=== PATIENT | male | born 1970 | race Caucasian/White ===

== ENCOUNTER 2023-02-05 07:38 | Emergency (ER) | payer BC, SELFPAY ==
[2023-02-05 07:43] VITALS: BP 130/86; PULSE 83; RESP 16; TEMP 35.9; O2SAT 97; BMI 33.9
--- NOTE | 2023-02-05 08:00 | ED_ITS ---
HPI - Extremity Injury (Lower) General Time Seen by Provider: 08:00 Date Seen: 02/05/23 Chief Complaint: Extremity Pain/Injury, Lower Stated Complaint: R foot injury Time Seen by Provider: 02/05/23 08:00 Source: patient, RN notes reviewed and old records reviewed Mode of arrival: ambulatory Limitations: no limitations History of Present Illness HPI Narrative: Patient is a very pleasant 52-year-old male with history of diabetes, hyperlipidemia who comes to the emergency room with right foot pain. Frankie noted that he has been dealing with plantar fasciitis recently. He had worn a splint in bed at night for 2 days and had resolution of that discomfort but had increasing pain over the area of his lateral foot. He notes that yesterday he was stepping onto a ladder and felt a crack or 2 in his right foot. Since that time and has been hard to bear weight any has pain in the area of the lateral and base of the 5th metatarsal. He has no numbness or tingling. He has not injured his foot in the past. He has not taken anything for pain at this point. Bearing weight and movement definitely increases his discomfort and rest seems to help. Related Data Home Medications Medication Instructions Recorded Confirmed atorvastatin 40 mg tablet 40 mg PO DAILY 02/05/23 02/05/23 insulin lispro 100 unit/mL 0 - 120 unit subcut DAILY 02/05/23 02/05/23 subcutaneous solution lisinopril 10 mg tablet 10 mg PO DAILY 02/05/23 02/05/23 meloxicam 15 mg tablet 15 mg PO DAILY 02/05/23 02/05/23 pantoprazole 20 mg tablet,delayed 20 mg PO DAILY 02/05/23 02/05/23 release Allergies Allergy/AdvReac Type Severity Reaction Status Date / Time No Known Drug Allergies Allergy Verified 02/05/23 07:49 [facility] Medical History Hypercholesterolemia ?E78.00 - Pure hypercholesterolemia, unspecified (ICD-10) Diabetes ?E11.9 - Type 2 diabetes mellitus without complications (ICD-10) Foot fracture ?S92.909A - Unspecified fracture of unspecified foot, initial encounter for closed fracture (ICD-10) Social History Smoking Status: Former smoker Do you use any of these nicotine containing products: None How often do you have a drink containing alcohol: never AUDIT-C Alcohol total score: 0 Non-prescribed substance use: marijuana (any form) Exam Narrative: Exam Narrative: Alert and oriented. Very pleasant gentleman. No respiratory distress. Examination of the foot shows mild erythema and some mild edema on the dorsum and lateral aspect of the foot. He has tenderness noted over the base of the 5th metatarsal. No pain over the navicular or malleoli bilaterally. Distally sensation is intact. Const: Vital Signs, click to edit/add: Vital Signs - 24 hr 02/05/23 07:43 Temperature 96.7 F L Pulse Rate [Pulse Oximeter] 83 Respiratory Rate 16 Blood Pressure [Ri ght Upper Arm] 130/86 Pulse Oximetry 97 Oxygen Delivery Me thod Room Air Documenting provider has reviewed patient's vital signs: yes Course Course Hospital Course: At this time I am strongly suspicious of injury of the base of the 5th metatarsal. Will obtain x-ray of the foot. Vital Signs Vital signs: Initial Vital Signs Temperature 96.7 F L 02/05/23 07:43 Temperature Source Temporal Artery Scan 02/05/23 07:43 Pulse Rate 83 02/05/23 07:43 Respiratory Rate 16 02/05/23 07:43 Blood Pressure 130/86 02/05/23 07:43 Blood Pressure Mean 100 02/05/23 07:43 Blood Pressure Position Sitting 02/05/23 07:43 Pulse Oximetry 97 02/05/23 07:43 Oxygen Delivery Method Room Air 02/05/23 07:43 Vital Signs Temperature 96.7 F L 02/05/23 07:43 Pulse Rate 83 02/05/23 07:43 Respiratory Rate 16 02/05/23 07:43 Blood Pressure 130/86 02/05/23 07:43 Pulse Oximetry 97 02/05/23 07:43 Oxygen Delivery Method Room Air 02/05/23 07:43 Temperature 96.7 F L 02/05/23 07:43 Pulse Rate 83 02/05/23 07:43 Respiratory Rate 16 02/05/23 07:43 Blood Pressure 130/86 02/05/23 07:43 Pulse Oximetry 97 02/05/23 07:43 Oxygen Delivery Method Room Air 02/05/23 07:43 MDM - Extremity Injury (Lower) MDM Narrative Medical decision making narrative: 1. Right 5th metatarsal fracture-this appears to be at the base. Patient has a boot and crutches at home which I would like him to utilize. Requests that he use the boot and he is able to bear weight but not full weight. Would request that he use his crutches for balance. He may elevate his foot ice as needed. It is imperative that he follow up with Orthopedics to be followed to ensure that this does heel as this particular type of fracture has a tendency for malunion or nonunion. He may use his meloxicam or Tylenol as needed for discomfort. 2. Disposition -home at this time. Return for worsening symptoms. Given his recent plantar fasciitis would recommend that while he is resting have additional support under his med at tarsal heads and toes for some mild dorsiflexion. Medical Records Attestation: I reviewed the patient's medical records. Imaging Data Right foot x-ray: Attestation: I have reviewed the pertinent imaging results. My impression: By my read patient has a minimally displaced fracture of the 5th metatarsal base. Radiologist's impression: There is an acute nondisplaced fracture of the 5th metatarsal base extending to the proximal articular surface. Os peroneum. Spurring of the plantar and posterior aspects of the calcaneus. No significant joint space narrowing. No radiopaque foreign body or soft tissue gas. IMPRESSION: Acute nondisplaced fracture of the right 5th metatarsal base. Discharge Plan Discharge Clinical Impression: Closed fracture of fifth metatarsal bone Qualifiers: Encounter type: initial encounter Fracture alignment: nondisplaced Laterality: right Qualified Code(s): S92.354A - Nondisplaced fracture of fifth metatarsal bone, right foot, initial encounter for closed fracture Patient Disposition: Home, Self-Care Condition: Unchanged Instructions: Foot Fracture in Adults (ED) Additional Instructions: 1. Wear your boot that you have at home when walking. I would like you to use the crutches for balance support. You may bear weight on your foot but not all of your weight. 2. Ibuprofen (or meloxicam) or Tylenol as needed for discomfort. Recommend tr john paul to keep your foot elevated. Ice as needed. 3. Follow-up with the orthopedic and fracture clinic for recheck and evaluation. Phone number, This particular fracture does have a tendency to not heal and thus I must recommend follow-up even if you are feeling better. 4. Return to the emergency room as needed. Note for work included. Prescriptions: No Action atorvastatin 40 mg tablet 40 mg PO DAILY meloxicam 15 mg tablet 15 mg PO DAILY pantoprazole 20 mg tablet,delayed release (DR/EC) 20 mg PO DAILY lisinopril 10 mg tablet 10 mg PO DAILY insulin lispro 100 unit/mL solution 0 - 120 unit subcut DAILY Follow Up/Referrals: Ayaz Haro MD [Primary Care Provider] - Stand Alone Forms: [employer] Info Instructions
--- NOTE | 2023-02-05 08:07 | CRLHL7_ITS ---
For Patients: As a result of the Century Cures Act, medical imaging exams and procedure reports are released immediately into your electronic medical record. You may view this report before your referring provider. If you have questions, please contact your health care provider. HISTORY: Right foot pain associated with the 5th metatarsal bone. TECHNIQUE: Three views of the right foot. COMPARISON: No prior. FINDINGS: There is an acute nondisplaced fracture of the 5th metatarsal base extending to the proximal articular surface. Os peroneum. Spurring of the plantar and posterior aspects of the calcaneus. No significant joint space narrowing. No radiopaque foreign body or soft tissue gas. IMPRESSION: Acute nondisplaced fracture of the right 5th metatarsal base. Dictated by Duke Da Silva MD @ 02/05/2023 9:05:48 AM Dictated by: Duke Da Silva MD @ 02/05/2023 09:05:54 (Electronically Signed)
== END 2023-02-05 09:03 | disposition home or self-care (01) ==
PROVIDERS: Emergency Provider Family Medicine; PCP Family Medicine
DX: S92.504A Nondisplaced unspecified fracture of right lesser toe(s), initial encounter for closed fracture (principal)
CPT/HCPCS: 73630; 99283; 99284

== ENCOUNTER 2023-04-21 07:51 | Day surgery (SDC) | payer BC, SELFPAY ==
[2023-04-21] MEDS: LACTATED RINGERS 1000 ML 1,000 ML 100 ML IV (08:10)
[2023-04-21] MEDS: SODIUM CHLORIDE 0.9 % (FLUSH) 10 ML SYRINGE IVF (08:10)
[2023-04-21 08:13] VITALS: BP 158/91; PULSE 85; RESP 16; TEMP 36.7; O2SAT 98; BMI 35.8
--- NOTE | 2023-04-21 09:00 | CRLHL7_ITS ---
For Patients: As a result of the Cures Act, medical imaging exams and procedure reports are released immediately into your electronic medical record. You may view this report before your referring provider. If you have questions, please contact your health care provider. Indication: ORIF 5TH Metatarsal Technique: Four fluoroscopic images of the right foot. Fluoroscopic time 26.0 seconds. IMPRESSION: Fluoroscopic guidance for open reduction internal fixation proximal 5th metatarsal fracture. Dictated by Brian Hong MD @ 04/21/2023 10:39:10 AM (Electronically Signed)
[2023-04-21] MEDS: CEFAZOLIN 2 GM INJ IVP (09:11)
[2023-04-21] MEDS: BUPIVACAINE 0.5% 30 ML INJECTION (09:20)
[2023-04-21 10:50] VITALS: BP 117/78; PULSE 76; RESP 16; TEMP 36.4; O2SAT 97
--- NOTE | 2023-04-21 10:53 | W.ANESCHARGE ---
Anesthesia Charges Start Date/Time Anesthesia Start Date: 04/21/23 Anesthesia Start Time: 09:06 Stop Date/Time Anesthesia Stop Date: 04/21/23 Anesthesia Stop Time: 10:51
--- NOTE | 2023-04-21 10:57 | PM.PROC ---
Procedure Note Date Seen: 04/21/23 Date of procedure: 04/21/23 Will [facility] bill your pro fee for this procedure?: No Pre-op diagnosis: 1. 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 ORIF 5th metatarsal base fracture right Procedure Description: Hemostasis: Ankle tourniquet 250 mm Hg Materials: Arthrex hook plate x1, 2.5 mm locking screw x3, 2.5 mm nonlocking screw x1, Asha augment bone graft with allogenic croutons Complications: None apparent Indications surgery: Patient has a nonhealing 5th metatarsal base fracture with significant diastasis. He has elected for surgical intervention. I reviewed the procedure, recovery, expectations and potential complications. These include but not limited to: Poor wound healing, infection, continued delayed union or nonunion, hardware irritation or failure, nerve injury, continued pain, deep venous thrombosis, pulmonary embolism and possible . He understands risks and written consent was obtained. Site was marked. Procedure in detail: Was brought in the operating room placed supine position on operating table. IV sedation was initiated local anesthetic injected into the right foot. Patient was prepped and draped in sterile fashion. Standard time-out protocol followed. Right foot was exsanguinated the tourniquet inflated. Linear incision was made over the dorsal lateral aspect of the 5th metatarsal base. Incision was carried down through skin subcutaneous tissues. Significant thickened periosteum was encountered and excised. Nonunion site was identified and debrided with a rongeur and curette until healthy bleeding bone margins obtained. Area was irrigated with normal sterile saline. Augment bone graft was mixed with crushed cancellous screw times and packed into the void. the fracture fragment was then reduced into anatomic alignment and temporary fixated with a 0.054 smooth K-wire. An Arthrex hook plate was then placed and the hooks tamped into the proximal fragment. plate was then advanced down to bone distally in a BB tack placed. Fracture site was well compressed and in anatomic position. 2.5 mm cortical locking screw was placed in the proximal fragment. 2.5 mm nonlocking cortical screw was placed in the compression slot distally which created additional compression at fracture nonunion site. Two additional 2.5 mm cortical locking screws were placed distal. Unfortunately was unable to place a 2nd locking screw proximal as the screw to be in within the fracture site. Rigid fixation was obtained With 1 screw and the imbedded hooks. C-arm images confirmed anatomic alignment of the fracture site and the 5th metatarsal cuboid joint. Deep fascia and periosteum were closed with 3-0 Vicryl. Subcutaneous tissues closed with 4-0 Monocryl and skin closed with 4-0 Prolene. Sterile dressing was applied. Tourniquet was released and normal capillary fill time returned all digits. He has placed a well-padded cam boot. He was transferred from OR to PACU with vital signs stable and vascular status intact. He was discharged per Anesthesia per same-day protocol. oxycodone for pain. Written and verbal postop instructions given. Strict nonweightbearing. Follow up in clinic next week. Anesthesia: MAC and local Surgeon: Kamron Anguiano DPM Estimated blood loss (mL): 2 Condition: stable Disposition: same day
[2023-04-21 11:00] VITALS: BP 129/74; PULSE 67; RESP 16; O2SAT 97
[2023-04-21 11:15] VITALS: BP 161/101; PULSE 65; RESP 16; O2SAT 97
[2023-04-21 11:30] VITALS: BP 165/102; PULSE 67; RESP 16; O2SAT 98
--- NOTE | 2023-04-21 11:35 | W.ANESCHARGE ---
Anesthesia Charges Start Date/Time Anesthesia Start Date: 04/21/23 Anesthesia Start Time: 09:06 Stop Date/Time Anesthesia Stop Date: 04/21/23 Anesthesia Stop Time: 10:51
== END 2023-04-21 11:50 | disposition home or self-care (01) ==
LOC: OR 07:55
PROVIDERS: PCP Family Medicine; Visit Provider Podiatrist
PROC: (CPT 28485; principal; 2023-04-21 09:00)
DX: S92.351A Displaced fracture of fifth metatarsal bone, right foot, initial encounter for closed fracture (principal)
CPT/HCPCS: 28485; 01480; 73620; 76000; 82962; C1713; J0665; J0690; J2250; J2405; J2704; J3010; J7120

== ENCOUNTER 2023-11-01 08:37 | Emergency (ER) | payer BC, SELFPAY ==
[2023-11-01 08:42] VITALS: BP 165/81; PULSE 83; RESP 18; TEMP 36.7; O2SAT 98; BMI 33.9
--- NOTE | 2023-11-01 08:54 | ED.GENADULT ---
HPI - General Adult General Time Seen by Provider: 08:54 Date Seen: 11/01/23 Chief complaint: Extremity Pain/Injury, Lower Stated complaint: foot injury/pain Time Seen by Provider: 11/01/23 08:47 Source: patient and RN notes reviewed Mode of arrival: ambulatory Limitations: no limitations History of Present Illness HPI narrative: This 53-year-old male is coming in with right foot pain. He had a fracture in his foot that was surgically repaired by sub acute care nurse Dr. Anguiano in April 2023. He notes since that time he always had a little swelling on the dorsal surface around the base of the 2nd and 3rd toes. Yesterday he mode, went to work afterwards and started to notice shooting pain that was sharp in the foot and increased pain within the center of the foot. He was having difficulty walking as this increases his pain. The pain was waking him through the night. He notes no fevers or chills. He points to his mid foot where he notes some of the sharp pain is. The whole foot feels achy. It is not necessarily along the surgical site which is along his lateral foot. He does note that the whole foot seems to be a bit more swollen. The pain is not into the ankle. No numbness or tingling. He did call the clinic, they cannot get him back into Dr. Anguiano until December and told him to come to the ER. He has no history of gout. There is no new trauma. Patient is diabetic. Related Data Home Medications Medication Instructions Recorded Confirmed atorvastatin 40 mg tablet 40 mg PO DAILY 02/05/23 11/01/23 insulin lispro 100 unit/mL 0 - 120 unit subcut DAILY 02/05/23 11/01/23 subcutaneous solution lisinopril 10 mg tablet 10 mg PO DAILY 02/05/23 11/01/23 pantoprazole 20 mg tablet,delayed 20 mg PO DAILY 02/05/23 11/01/23 release Allergies Allergy/AdvReac Type Severity Reaction Status Date / Time No Known Drug Allergies Allergy Verified 04/21/23 08:13 Review of Systems Narrative: As per HPI. [facility] Medical History Hypercholesterolemia ?E78.00 - Pure hypercholesterolemia, unspecified (ICD-10) Diabetes ?E11.9 - Type 2 diabetes mellitus without complications (ICD-10) Foot fracture ?S92.909A - Unspecified fracture of unspecified foot, initial encounter for closed fracture (ICD-10) Social History Smoking Status: Former smoker Do you use any of these nicotine containing products: None How often do you have a drink containing alcohol: never AUDIT-C Alcohol total score: 0 Non-prescribed substance use: marijuana (any form) Caffeine: Yes Exam Const: Vital Signs, click to edit/add: Vital Signs - 24 hr 11/01/23 08:42 Temperature 98.1 F Pulse Rate [Right Pulse Oximeter] 83 Respiratory Rate 18 Blood Pressure [Ri ght Upper Arm] 165/81 H Pulse Oximetry 98 Oxygen Delivery Me thod Room Air Patient has a short cam walker boot that he comes in with. He is alert, interactive, no apparent distress. Breathing easily on room air, lungs clear. CV regular rate and rhythm no murmur. Inspection of his feet shows that there is indeed some very mild tissue swelling over the dorsum of his right foot. There is just very slight pinkish coloration to this but not erythema. The dorsum of the foot feels globally mildly warmer than the left foot. Neurovascular is intact. He has pain when I compress the metatarsal heads. He feels the pain more in the lateral foot when I do this. He has a surgical scar along the lateral foot overlying the 5th metatarsal, no pain there. He has no pain along his ankle mortise, no edema or swelling into the ankle, ankle joint without effusion. Pain seems to be coming from the midfoot where he is pointing to. Documenting provider has reviewed patient's vital signs: yes Course Course ED Course: We will start with plain x-rays of his foot, obtain basic labs. He is diabetic which does place him at potentially higher risk for infection. I think infection is lower on my differential list. Inflammatory conditions such as gout and pseudogout are possible. This could be structural with arthritis developing, neuropathic changes. Will see what the x-ray and labs show S. Reevaluation(s) Time of Reevaluation #1: 10:37 Reevaluation #1: Reviewed patient's x-ray report with him. Reviewed that his labs are normal and do not necessarily point to any etiology for his complaints. I do note that the dorsum of this foot seems to be a little bit more erythematous since his arrival. His foot has been up on the bed essentially elevating. Swelling is not worse but there is more erythema that is notable. Reviewed with patient that I am going to try to page Dr. Anguiano. Time of Reevaluation #2: 11:01 Reevaluation #2: Patient updated, does have crutches at home. Will await CT to be done. Time of Reevaluation #3: 11:52 Reevaluation #3: Reviewed CT with the 2nd metatarsal fracture. Plan will be to follow up with Podiatry, use his cam walker and crutches for immobilization and nonweightbearing. Will provide patient a note for work until he follows up with Podiatry. He states if he is not going to be weight-bearing that he does not think he will need anything for pain. Consultations Consultation #1: Have reviewed the case with Dr. Anguiano. He worries that this could be acute phase of Charcot foot. We will obtain a CT for baseline. Is going to have his office get the patient in sooner and will contact him. We will get the CT, make sure that he is aware to be nonweightbearing on this foot. Will have to see if he needs crutches. Time: 10:42 Vital Signs Vital signs: Initial Vital Signs Temperature 98.1 F 11/01/23 08:42 Temperature Source Temporal Artery Scan 11/01/23 08:42 Pulse Rate 83 11/01/23 08:42 Respiratory Rate 18 11/01/23 08:42 Blood Pressure 165/81 H 11/01/23 08:42 Blood Pressure Mean 109 H 11/01/23 08:42 Blood Pressure Position Sitting 11/01/23 08:42 Pulse Oximetry 98 11/01/23 08:42 Oxygen Delivery Method Room Air 11/01/23 08:42 Vital Signs Temperature 98.1 F 11/01/23 08:42 Pulse Rate 83 11/01/23 08:42 Respiratory Rate 18 11/01/23 08:42 Blood Pressure 165/81 H 11/01/23 08:42 Pulse Oximetry 98 11/01/23 08:42 Oxygen Delivery Method Room Air 11/01/23 08:42 Temperature 98.1 F 11/01/23 08:42 Pulse Rate 83 11/01/23 08:42 Respiratory Rate 18 11/01/23 08:42 Blood Pressure 165/81 H 11/01/23 08:42 Pulse Oximetry 98 11/01/23 08:42 Oxygen Delivery Method Room Air 11/01/23 08:42 Medical Decision Making Lab Data Lab results reviewed: Yes I reviewed the patient's lab results Labs: Lab Results 11/01/23 Range/Units 09:13 WBC 8.16 (4.50-11.00) K/uL RBC 4.73 (4.30-5.90) m/uL Hgb 13.9 (13.5-17.5) gm/dL Hct 42.1 (37.0-53.0) % MCV 89 (80-100) fL MCH 29 (26-34) pg MCHC 33 (32-36) gm/dL RDW Coeff of Serge 13.1 (11.5-15.5) % Plt Count 269 (140-440) K/uL Neut % (Auto) 63.1 (42.0-72.0) % Lymph % (Auto) 27.6 (20-44) % Granite % (Auto) 7.1 (0.0-11.0) % Eos % (Auto) 1.6 (0.0-7.0) % Baso % (Auto) 0.4 (0.0-3.0) % Neut # (Auto) 5.15 (1.7-7.0) K/uL Lymph # (Auto) 2.25 (0.90-2.90) K/uL Granite # (Auto) 0.60 (0.00-0.90) K/UL Eos # (Auto) 0.13 (0.00-0.50) K/uL Baso # (Auto) 0.03 (0.00-0.30) K/uL Abs Immat Gran (auto) 0.02 (0.00-0.30) K/uL Imm/Tot Granulo (auto) 0.2 % Sodium 138 (135-149) mmol/L Potassium 4.1 (3.6-5.1) mmol/L Chloride 102 (96-114) mmol/L Carbon Dioxide 29 (20-32) mmol/L Anion Gap 7 (7-15) mEq/L BUN 21 (7-30) mg/dL Creatinine 0.9 (0.5-1.5) mg/dL Estimated Creat Clear 102.99 Estimated GFR 101 ml/min Glucose 94 (60-115) mg/dL Uric Acid 6.9 (2.2-8.4) mg/dL Calcium 9.0 (8.4-10.6) mg/dL C-Reactive Protein < 0.5 L (0.5-1.0) mg/dL Procalcitonin 0.05 (<0.50) ng/mL Imaging Data XR right foot: Attestation: I have reviewed the pertinent imaging results. My impression: Visualize x-rays, hardware appears intact to me, I do not appreciate acute changes, wait radiology over-read. Radiologist's impression: Patient: STONEY BURNETT Facility:?[facility] Patient ID:?[id number] Site Patient ID:?[id number]. Site :?1970 Study:?XRay-Extremity Right Foot 3v-11/01/2023 9:36:46 AM Ordering Physician:?Meenu Flores Final Report: INDICATION: Pain on the top of the foot. Pain knot at the previous surgical site. COMPARISON: None. TECHNIQUE: Three views right foot FINDINGS: Healing fracture through the base of the right 5th metatarsal with lateral plate and screw fixation. No hardware loosening or failure. No other acute or healing fracture seen. There is mild flattening of the 2nd metatarsal head. Normal alignment. 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 No focal bone lesions. Normal bone mineralization. Soft tissue swelling over the top of the foot. Heavy atherosclerotic vascular calcifications. No foreign body. IMPRESSION: Soft tissue swelling over the top of the right foot. No acute fracture seen. Dictated by Paige Oneal MD @ 11/01/2023 9:41:37 AM (Electronic Signature) CT- Other: Attestation: I have reviewed the pertinent imaging results. Radiologist's impression: Patient: STONEY BURNETT Facility:?[facility] Patient ID:?[id number] Site Patient ID:?[id number]. Site :?1970 Study:?CT-Extremity Right foot w/o-11/01/2023 11:32:13 AM Ordering Physician:Valentin Flores Final Report: INDICATION: Midfoot pain. TECHNIQUE: Noncontrast CT of the right foot. COMPARISON: Radiographs from 11/01/2023. FINDINGS: There is a subtle nondisplaced incomplete fracture involving the plantar cortex of the 2nd metatarsal bone at the junction of the metaphysis and shaft. This is noted on coronal image number 34 of series 5. There is some periosteal reaction involving the 2nd metatarsal bone. Remote fracture of the neck of the 3rd metatarsal bone, healed with mild deformity. Prior plate and screw fixation of the proximal 5th metatarsal bone. That placed hardware appears intact and appropriately seated. The 5th metatarsal base fracture demonstrates partial healing. Cuneiform bones, navicular bone and cuboid bone are intact. TMT alignment maintained. An os peroneum is present. Chronic ossicle adjacent to the anterior process of the calcaneus. Chronic ossicle along the medial aspect of the sinus tarsi. Plantar calcaneal spur. Thickening of the proximal plantar fascia. Subcutaneous edema. Mild atrophy of interosseous foot musculature suggesting chronic denervation changes. IMPRESSION: 1. Subtle nondisplaced incomplete fracture involving the plantar cortex of the 2nd metatarsal bone proximally. Associated periosteal reaction involving the 2nd metatarsal shaft. 2. Remote fracture of the 3rd metatarsal bone, healed with mild deformity. 3. Prior plate and screw fixation of the 5th metatarsal bone. Hardware intact and appropriately seated. Fifth metatarsal base fracture demonstrates partial healing. 4. No TMT joint malalignment or significant arthrosis. 5. Mild atrophy of the interosseous foot musculature which may reflect chronic denervation changes. Dictated by Duke Da Silva MD @ 11/01/2023 11:45:27 AM Please note that all CT scans at this facility use dose modulation, iterative reconstruction, and/or weight-based dosing when appropriate to reduce radiation dose to as low as reasonably achievable. Dictated by: Duke Da Silva MD @ 11/01/2023 11:45:37 (Electronic Signature) Discharge Plan Discharge Clinical Impression: Closed fracture of second metatarsal bone Qualifiers: Encounter type: initial encounter Fracture alignment: nondisplaced Laterality: right Qualified Code(s): S92.324A - Nondisplaced fracture of second metatarsal bone, right foot, initial encounter for closed fracture Patient Disposition: Home, Self-Care Condition: Stable Instructions: Foot Fracture in Adults (ED) Additional Instructions: Leave cam walker on for immobilization, use crutches for nonweightbearing. You will see Dr. Anguiano in clinic at 3:15 p.m. next Monday which will be November 06. Ice and elevate this foot as much as you can to help decrease swelling. Activity Level: No Weight Bearing Prescriptions: No Action atorvastatin 40 mg tablet 40 mg PO DAILY pantoprazole 20 mg tablet,delayed release (DR/EC) 20 mg PO DAILY lisinopril 10 mg tablet 10 mg PO DAILY insulin lispro 100 unit/mL solution 0 - 120 unit subcut DAILY Follow Up/Referrals: Ayaz Haro MD [Primary Care Provider] - Stand Alone Forms: [employer] Info Instructions
--- NOTE | 2023-11-01 09:04 | XR_ITS ---
Patient: STONEY BURNETT Facility:?[facility] Patient ID:?[id number] Site Patient ID:?[id number]. Site :?1970 Study:?XRay-Extremity Right Foot 3v-11/01/2023 9:36:46 AM Ordering Physician:?Meenu Flores Final Report: INDICATION: Pain on the top of the foot. Pain knot at the previous surgical site. COMPARISON: None. TECHNIQUE: Three views right foot FINDINGS: Healing fracture through the base of the right 5th metatarsal with lateral plate and screw fixation. No hardware loosening or failure. No other acute or healing fracture seen. There is mild flattening of the 2nd metatarsal head. Normal alignment. 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 No focal bone lesions. Normal bone mineralization. Soft tissue swelling over the top of the foot. Heavy atherosclerotic vascular calcifications. No foreign body. IMPRESSION: Soft tissue swelling over the top of the right foot. No acute fracture seen. Dictated by Paige Oneal MD @ 11/01/2023 9:41:37 AM Signed by:?Paige Oneal MD @11/01/2023 9:41:37 AM (Electronic Signature)
[2023-11-01 09:18] LABS: Basophils Absolute Auto 0.03 K/uL (0.00-0.30); Basophils Percent Auto 0.4 % (0.0-3.0); Eosinophils Absolute Auto 0.13 K/uL (0.00-0.50); Eosinophils Percent Auto 1.6 % (0.0-7.0); Hematocrit 42.1 % (37.0-53.0); Hemoglobin* 13.9 gm/dL (13.5-17.5); Immature Granulocytes Abs Auto 0.02 K/uL (0.00-0.30); Immature Granulocytes Pct Auto 0.2 %; Lymphocytes Absolute Auto 2.25 K/uL (0.90-2.90); Lymphocytes Percent Auto 27.6 % (20-44); Mean Corpuscular HGB Conc 33 gm/dL (32-36); Mean Corpuscular Hemoglobin 29 pg (26-34); Mean Corpuscular Volume 89 fL (80-100); Monocytes Percent Auto 7.1 % (0.0-11.0); Neutrophils Absolute Auto 5.15 K/uL (1.7-7.0); Neutrophils Percent Auto 63.1 % (42.0-72.0); Platelet Count* 269 K/uL (140-440); RDW Coefficient of Variation % 13.1 % (11.5-15.5); Red Blood Count 4.73 m/uL (4.30-5.90); White Blood Count* 8.16 K/uL (4.50-11.00)
[2023-11-01 09:23] LABS: Slide Review Reflex No
[2023-11-01 09:32] LABS: Chloride* 102 mmol/L (96-114); Potassium* 4.1 mmol/L (3.6-5.1); Sodium* 138 mmol/L (135-149)
[2023-11-01 09:35] LABS: Creatinine* 0.9 mg/dL (0.5-1.5); Est. Creatinine Clearance* 102.99; Estimated Glomerular Filt Rate 101 ml/min
[2023-11-01 09:36] LABS: Anion Gap 7 mEq/L (7-15); Blood Urea Nitrogen* 21 mg/dL (7-30); Carbon Dioxide* 29 mmol/L (20-32); Glucose* 94 mg/dL (60-115); Uric Acid* 6.9 mg/dL (2.2-8.4)
--- OUTSIDE RECORDS SUMMARY | 2023-11-01 09:38 | XMS_ITS | Referral Summary ---
Author Name Unknown Organization [place] Address [facility] [place] [address] Care Team Providers Care Skimmer Scoop Operator Name Role Phone Ayaz Haro Primary Care Provider [phone] Allergies No known active allergies Medications Medication Sig Dispensed Refills Start Date End Date Status Insulin Lispro, Human, (HUMALOG SC) Inject Subcutaneous. Active lisinopril (PRINIVIL,ZESTRIL) 2.5 MG tablet Take 2.5 mg by mouth daily. Active ORDER FOR DMEIndications:Toe injury R post op shoe. 1 Device 0 12/10/2010 Active order for DMEIndications:Sesam oiditis Equipment being ordered: post op shoe right 1 Device 0 12/26/2015 Active ATORVASTATIN CALCIUM PO Active naproxen (NAPROSYN) 500 MG tabletIndications:Ri ght foot pain Take 1 tablet (500 mg) by mouth 2 times daily (with meals) 60 tablet 0 12/30/2015 Active pantoprazole (PROTONIX) 20 MG EC tablet Take 40 mg by mouth daily Active Social History Tobacco Use Types Packs/Day Years Used Date Smoking Tobacco: Former Cigarettes Q uit: 2008 Smokeless Tobacco: Never Tobacco Cessation:Counseling Given: Not Answered Alcohol Use Standard Drinks/Week Comments Not Currently 0 (1 standard drink = 0.6 oz pur e alcohol) Adolescent Education Answer Date Record ed Getting School Help Needed Not on file 04/05 Sex and Gender Information Value Date Recorded Sex Assigned at Not on file Gender Identity Not on file Sexual Orientation Not on file Last Filed Vital Signs Vital Sign Reading Time Taken Comments Blood Pressure 105/68 08/26/2022 2:30 PM [facility] Pulse 64 08/26/2022 2:30 PM [facility] Temperature 37.1 ??C (98.8 ??F) 12/30/2015 5:29 PM CD T Respiratory Rate 10 08/26/2022 2:30 PM [facility] Oxygen Saturation 94% 08/26/2022 2:30 PM [facility] Inhaled Oxygen Concentration - - Weight 111.1 kg (245 lb) 08/26/2022 1:31 PM [facility] Height 182.9 cm (6') 08/26/2022 1:31 PM [facility] Body Mass Index 33.23 08/26/2022 1:31 PM [facility] Plan of Treatment Not on file Care Teams Skimmer Scoop Operator Relationship Specialty Start Date End Date Ayaz Haro [address] [place] [address] PCP - General Family Medicine 08/26/22
--- OUTSIDE RECORDS SUMMARY | 2023-11-01 09:38 | XMS_ITS | Clinical Summary ---
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) USE DIRECTED FOR PERSONAL USE IN CASE OF SEVERE HYPERGLYCEMIA 50 Each 7 Active blood sugar diagnostic (Blood Glucose Test) stripIndications :Type 1 diabetes mellitus with other neurologic complication (HC) Test blood sugar 3 times per day 100 Each 5 3 Active lancetsIndicatio ns:Type 1 diabetes mellitus with other neurologic complication (HC) Use to test blood sugars 3 times per day 100 Each 5 3 Active blood-glucose meterIndications :Type 1 diabetes mellitus with other neurologic complication (HC) Test blood sugar as directed 1 Each 3 Active durable medical equipment (DME)Indications :Plantar fasciitis Custom functional orthotics for plantar fasciitis 1 Each 3 Active durable medical equipment (DME)Indications :Closed fracture of base of fifth metatarsal bone of right foot, initial encounter Airselect, standard, large 01EF-left length of use 99 months 1 Each 3 Active glucagon (BAQSIMI) 3 mg/actuation nasal sprayIndications :patient with diabetes mellitus at risk of hypoglycemia Inhale 1 [place] into affected nostril(s) each time if needed for Severe Hypoglycemia. Roll on side and call 911 after administration. 2 Each 1 3 Active oxyCODONE (ROXICODONE) 5 mg immediate release tabletIndication s:Closed fracture of base of fifth metatarsal bone of right foot, initial encounter Take 1-2 Tablets (5-10 mg) by mouth every 4 hours if needed for Pain. 20 Tablet 3 Active CPAPIndications: ALEJANDRA (obstructive sleep apnea) CPAP machine for home use at pressure 9 cmw, starting pressure between 5-7 based on patient's comfort; full face mask x1/3month with full face mask cushion x1/mo 1 Each 11 4 Active atorvastatin (LIPITOR) 40 mg tabletIndication s:Dyslipidemia, goal LDL below 70 TAKE 1 TABLET(40 MG) BY MOUTH EVERY DAY 90 Tablet 2 4 Active pantoprazole (PROTONIX) 20 mg tabletIndication s:Upper GI bleed TAKE 1 TABLET(20 MG) BY MOUTH EVERY DAY 90 Tablet 2 4 Active lisinopriL (PRINIVIL; ZESTRIL) 20 mg tabletIndication s:Benign essential HTN Take 1 Tablet (20 mg) by mouth once daily. 90 Tablet 1 4 Active insulin lispro (HUMALOG; ADMELOG) 100 unit/mL injectionIndicat ions:Type 1 diabetes mellitus with other neurologic complication (HC) INJECT UP TO 120 UNITS PER DAY IN INSULIN PUMP 150 mL 3 4 Active lisinopriL (PRINIVIL; ZESTRIL) 20 mg tabletIndication s:Benign essential HTN Take 1 Tablet (20 mg) by mouth once daily. 90 Tablet 2 3 10/12/19 24 Discontinued insulin lispro (HUMALOG; ADMELOG) 100 unit/mL injectionIndicat ions:Type 1 diabetes mellitus with other neurologic complication (HC) INJECT UP TO 120 UNITS PER DAY IN INSULIN PUMP 150 mL 4 10/15/19 24 Discontinued lisinopriL (PRINIVIL; ZESTRIL) 20 mg tabletIndication s:Benign essential HTN TAKE 1 TABLET(20 MG) BY MOUTH EVERY DAY 90 Tablet 4 10/12/19 24 Discontinued(Re order (E-cancel not sent)) Active Problems Problem Noted Date Diagnosed Date ALEJANDRA 12/26/2022 AHI- 13, positional 01/23/2023 Colon polyp 05/28/2021 Overview: Colonoscopy 05/2021 TA, repeat in 7 years Benign essential HTN 10/17/2014 Obesity, unspecified 04/17/2012 Other and unspecified hyperlipidemia 03/09/2011 Sensorineural hearing loss, bilateral 02/17/2011 Retinopathy, other nondiabetic proliferative 06/2010 Neuropathy in diabetes 02/17/2011 Albuminuria 02/17/2011 Amputation of finger of left hand 02/17/[address] 12/15/2010 Type 1 diabetes mellitus with neurological compl ications 12/15/2010 Overview: diagnosis age 17 history of albuminuria history of mild lower extremity neuropathy HEALTH CARE AIDE eye exam 01/30 Resolved Problems Problem Noted Date Diagnosed Date Resolved Date Acute hyperkalemia 10/14/2014 Acute kidney injury (nontraumatic) 10/14/2014 04/02/2021 Shoulder pain, right 02/17/2011 022 Chest pain, unspecified 02/17/201103/19 Encounters Date Type Department Care Team Description 11/01/2023 Nurse Triage [facility] [address] [place] [address] Kamron Anguiano DPM Foot Pain/problem 10/14/2023 Refill [facility] [address] [place] [phone] Frankie Sotelo MD Refill Request (Insulin Lispro) 10/11/2023 Refill [facility] [address] [place] [address] Ayaz Haro MD Refill Request (Lisinopril) 08/13/2023 Refill [facility] [address] [facility] [address] Ayaz Haro MD Refill Request (Atorvastatin, Pantoprazole) 08/08/2023 1:00 PM HOLE FILLER Office Visit [facility] [address] [place] [address] Kamron Anguiano, DPM Follow Up (Right 3 month post op visit, DOS 04/21/23) 08/08/2023 Travel from Last 3 Months Immunizations Name Administration Dates Next Due COVID-19 vaccine (Moderna 100mcg/0.5mL) PF, MDV 05/28/2021 COVID-19 vaccine ([employer] NTech 30mcg/0.3mL) 12YO+ BIVALENT PF, MDV 03/17/2022 DT (Age < 7 years) 12/01/2008 Hepatitis B (Adult) 04/02/2021,10/26/2016,2014 Hepatitis B, Unspecified 10/26/2016,10/17/2014 Influenza Virus, Unspecified 03/01/2016,04/02/20 09 Influenza, IIV3 (Age 6-35 mos) 02/17/2011 Influenza, IIV3 (Age >=3 years) 04/17/2012,02/17 Influenza, IIV4 03/17/2022,,03/10/2020,2015,02/17/2014 Pneumococcal Conj 20-valent (Prevnar 20) 07/11/2022 Pneumococcal Poly,23-Valent (Pneumovax) 05/06/2009 Tdap 04/02/2021 Zoster (Shingrix-RZV, recombinant) 03/17/2022, Family History Medical History Relation Name Comments Alcoholism Brother Alcoholism Maternal Grandfather Suicidality Maternal Grandfather commite d suicide late 30's Psychiatric illness Mother bipolar Bipolar disorder Other maternal au nt Anesthesia Problem No Family History Cancer-colon No Family History Cancer-prostate No Family History Heart attack No Family History Relation Name Status Comments Brother Father Alive Maternal Grandfather Mother Alive Other Social History Tobacco Use Types Packs/Day Years Used Date Smoking Tobacco: Former Cigarettes 1 15 0 02/05/1992 - 02/04/2007 Smokeless Tobacco: Never Tobacco Cessation:Counseling Given: Yes Alcohol Use Standard Drinks/Week Comments Not Currently 0 (1 standard drink = 0.6 oz pur e alcohol) as of 04/19/2023 PHQ-2 Answer Date Recorded PHQ-2 TOTAL SCORE 1 07/11/2022 Social Connections Answer Date Recorded Frequency of Communication with Friends and Fami ly Not on file 09/01/2023 Financial Resource Strain Answer Date R ecorded Difficulty of Paying Living Expenses 2 08/18/2022 Difficulty of Paying Living Expenses 1 08/18/2022 Food Insecurity Answer Date Recorded Worried About Running Out of Food in the Last Ye ar 1 08/18/2022 Transportation Needs Answer Date Record ed Lack of Transportation (Medical) 1 08/18/2022 Housing Stability Answer Date Recorded Unable to Pay for Housing in the Last Year 1 08/18/2022 Sex and Gender Information Value Date Recorded Sex Assigned at Not on file Gender Identity Not on file Sexual Orientation Not on file Obstetrics History Last Filed Vital Signs Vital Sign Reading Time Taken Comments Blood Pressure 148/87 07/24/2023 10:03 AM HOLE FILLER Pulse 90 08/08/2023 1:21 PM HOLE FILLER Temperature 36.4 ??C (97.5 ??F) 05/10/2023 8:19 AM CS T Respiratory Rate 16 01/20/2023 3:47 PM CDT Oxygen Saturation 98% 08/08/2023 1:21 PM HOLE FILLER Inhaled Oxygen Concentration - - Weight 118.6 kg (261 lb 6.4 oz) 08/08/2023 1:21 PM HOLE FILLER Height 182.9 cm (6') 07/24/2023 10:03 AM HOLE FILLER Body Mass Index 35.45 07/24/2023 10:03 AM HOLE FILLER Plan of Treatment Upcoming Encounters Date Type Department Care Team (Late st Contact Info) Description 11/09/2023 1:30 PM CDT Office Visit [facility] [address] [place] [address] Maninder Garcia MD [address] [place] [address] Health Maintenance Due Date Last Done Comments COVID-19 vaccine series (5 - 2023-24 season) 2023 03/17/2022, 05/28/2021, 09/27/2020, Additional history exists Depression screening for age 12+ 07/12/2023 07/12/2022, 07/12/2022, 07/11/2022, Additional history exists Influenza for age 50-64 02/18/2024 03/17/20 22, 04/02/2021, 03/10/2020, Additional history exists BMI (ht and wt on same day) for age 18+ 07/24/2024 07/24/2023, 04/19/2023, 04/17/2023, Additional history exists Lipids for age 45-75 04/19/2028 04/19/2023, 03/17/2022, 04/02/2021, Additional history exists Colonoscopy through age 75 05/27/202805/27, 05/27/2021, 05/27/2021 Tetanus booster 04/02/2031 04/02/2021, 11/17 (Completed outside of [facility]) Hepatitis B series for Diabetes Completed 04/02/2021, 10/26/2016, 10/26/2016, Additional history exists Tdap Completed 04/02/2021 Hepatitis C screening for ag e 18-79 Completed 03/17/2022 Zoster (shingles) series for age 50+ Completed 03/17/2022, 04/02/2021 Pneumococcal series for age 6-64 Completed 07/11/19 23, 05/06/2009 HIV for age 15-65 Completed 08/18/2022 Procedures Procedure Name Priority Date/Time Associated Diagnosis Comments LIPID PANEL W REFLEX MEASURED LDL Routine 04/19/2023 2:11 PM CDT Type 1 diabetes mellitus with other neurologic complication (HC) LC HIV-1/O/2, 4TH GENERATION Routine 08/18/2022 4:20 PM HOLE FILLER Encounter for screening for HIV ANTI HCV Routine 03/17/2022 3:28 PM CDT Need for hepatitis C screening test COLONOSCOPY SCREENING Routine 05/27/2021 9:26 AM HOLE FILLER Screening for colon cancer from Last 3 Months or Most Recently Relevant to Health Maintenance Results * LIPID PANEL W REFLEX MEASURED LDL (04/19/2023 2:11 PM CDT) CHOLESTEROL,TOTAL 173 100 - 199 mg/dL 04/19/2023 10:42 PM CDT [facility] Comment: Cholesterol, Total Reference Ranges Desirable <200 mg/dL Borderline 200-239 mg/dL High >=240 mg/dL TRIGLYCERIDES 128 <150 mg/dL 04/19/2023 10:42 PM CDT [facility] HDL CHOLESTEROL 76 >40 mg/dL 10:42 PM CDT [facility] NON-HDL CHOLESTEROL 97 <145 mg/dl 04/19/2023 10:42 PM CDT [facility] CHOL/HDL RATIO 2.28 <4.50 04/19/2023 10:42 PM CDT [facility] LDL CHOLESTEROL 71 <=130 mg/dL 04/19/2023 10:42 PM CDT [facility] VLDL CHOLESTEROL 26 <=30 mg/dL 04/19/2023 10:42 PM CDT [facility] PROVIDER ORDERED STATUS RANDOM 04/19/2023 10:42 PM CDT [facility] Blood BLOOD SPECIMEN / Unknown Venipuncture / Unknown 04/19/2023 2:11 PM CDT 04/19/2023 2:11 PM CDT Frankie Sotelo MD CHEMISTRY [facility] [address] [place] [address], * LC HIV-1/O/2, 4TH GENERATION (08/18/2022 4:20 PM HOLE FILLER) HIV Scr 4th Gen Non Reactive Non Reactive 08/23/2022 3:09 PM HOLE FILLER [facility] Comment: HIV Negative HIV-1/HIV-2 antibodies and HIV-1 p24 antigen were NOT detected. There is no laboratory evidence of HIV infection. Blood BLOOD SPECIMEN / Unknown Venipuncture / Unknown 08/18/2022 4:20 PM HOLE FILLER 08/18/2022 4:22 PM HOLE FILLER Narrative [facility] ([facility] - 08/23/2022 3:09 PM HOLE FILLER Performed at: ??01 - [address] ??[id number] Cage Shift Manager: Edgar Flores MD, Phone: ??[phone] Ayaz Haro MD LABORATORY [facility] ([facility]) [address] [place] [address], * ANTI HCV (03/17/2022 3:28 PM CDT) HEPATITIS C ANTIBODY Non-React joaquina Non-React joaquina 03/18/2022 6:40 PM CDT [facility] Comment:Antibodies to HCV no t detected; does not exclude the possibility of exposure to HCV. Blood BLOOD SPECIMEN / Unknown Venipuncture / Unknown 03/17/2022 3:28 PM CDT 03/17/2022 3:34 PM CDT Ayaz Haro MD SEND OUTS [facility] [address] [place] [address], * COLONOSCOPY (05/27/2021 9:18 AM HOLE FILLER) 05/27/2021 9:18 AM HOLE FILLER Narrative Transcriptions Raghav Joe MD - 05/27/2021 10:24 AM CST Patient Name: Frankie Sánchez Procedure Date: 05/27/2021 Gender: Male Date of : 1970 Admit Type: Outpatient Procedure: Colonoscopy Proceduralist: Raghav Joe MD , Asuncion Crabtree (Nurse) Referring MD: Ayaz Haro Indications/Pre-Op Diagnosis: Screening for colorectal malignant neoplasm, This is the patient's first colonoscopy Medications: Fentanyl 100 micrograms IV, Midazolam 4 mgIV, The level of sedation administered wasmoderate Procedure Description: The patient had risks, benefits and alternatives explained to andgave informed consent. The patient had a stable cardiopulmonary status and judged an adequate candidate for conscious sedation. The [id number] was passed through the anus and advanced tothe cecum, identified by appendiceal orifice and ileocecal valve. The colonoscopy was performed without difficulty. The patient toleratedthe procedure well. The quality of the bowel preparation was good. The ileocecal valve, appendiceal orifice, and rectum were photographed. Complications: No immediate complications. Estimated Blood Loss & Specimen: Estimated blood loss: none. Specimen collected - Yes and sent to Laboratory Findings: The perianal and digital rectal examinations were normal. A 4 mm polyp was found in the distal rectum. The polyp was semi-pedunculated. The polyp was removed with a hot snare. Resectionand retrieval were complete. The exam was otherwise without abnormality on direct and retroflexion views. Impressions/Post-Op Diagnosis: - One 4 mm polyp in the distal rectum, removed with a hot snare. Resected and retrieved. - The examination was otherwise normal on direct and retroflexionviews. Recommendation: - Patient has a contact number available for emergencies. The signsand symptoms of potential delayed complications were discussed with the patient. Return to normal activities tomorrow. Written discharge instructions were provided to the patient. - Resume previous diet. - Continue present medications. - Await pathology results. - Repeat colonoscopy date to be determined after pending pathology results are reviewed. Moderate Sedation: Moderate (conscious) sedation was administered by the endoscopy nurse and supervised by the endoscopist. The following parameters were monitored: oxygen saturation, heart rate, respiratory rate, blood pressure, adequacy of pulmonary ventilation and reponse to care. Please refer to the patient's medical record flowsheets and nursing notes for moderate sedation details. Total physician intraservice time was 21 minutes. Raghav Joe MD 05/27/2021 10:24:08 AM This report has been signed electronically. Note Initiated On: 05/27/2021 9:18 AM Procedure Code(s): --- Professional --- 17227, Colonoscopy, flexible; with removalof tumor(s), polyp(s), or other lesion(s) bysnare technique Diagnosis Code(s): --- Professional --- Z12.11, Encounter for screening formalignant neoplasm of colon K62.1, Rectal polyp CPT copyright 2020 [employer]. All rights reserved. The codes documented in this report are preliminary and upon foreign student adviser reviewmay be revised to meet current compliance requirements. Scope In: 10:01:04 AM Scope Withdrawal Time 0 hours 15 minutes 6 seconds Scope Out: 10:19:05 AM Raghav Joe MD PROCEDURE ORD from Last 3 Months or Most Recently Relevant to Health Maintenance Advance Directives * Full Code (Latest Code Status on File) Date Activated Date Inactivated Comments 10/14/2014 5:00 PM 10/15/2014 5:36 PM Care Teams Gas Compressor Turbine Operator Relationship Specialty Start Date End Date Ayaz Haro MD [address] [place] [address] PCP - General Family Practice 10/26/16 Kamron Anguiano DPM PODIATRY Podiatry 04/23/12 Christine Tavarez AuD Audiology 07/10/12 Frankie Sotelo MD [address] [place] [address] Endocrinology 06/30/22
--- OUTSIDE RECORDS SUMMARY | 2023-11-01 09:38 | XMS_ITS | Clinical Summary ---
Author Name Unknown Organization [facility] Address [address] [place] [address] Care Team Providers Care Instructor Knitting Name Role Phone Ayaz Haro Primary Care Provider [phone] Allergies No known active allergies Medications Medication [...] Comments Blood Pressure 105/68 08/26/2022 2:30 PM GEOPHYSICAL E LOGGER Pulse 64 08/26/2022 2:30 PM GEOPHYSICAL E LOGGER Temperature 37.1 ??C (98.8 ??F) 12/30/2015 5:29 PM CD T Respiratory Rate 10 08/26/2022 2:30 PM GEOPHYSICAL E LOGGER Oxygen Saturation 94% 08/26/2022 2:30 PM GEOPHYSICAL E LOGGER Inhaled Oxygen Concentration - - Weight 111.1 kg (245 lb) 08/26/2022 1:31 PM GEOPHYSICAL E LOGGER Height 182.9 cm (6') 08/26/2022 1:31 PM GEOPHYSICAL E LOGGER Body Mass Index 33.23 08/26/2022 1:31 PM GEOPHYSICAL E LOGGER Plan of Treatment Health Maintenance Due Date Last Done Comments ADVANCE CARE PLANNING 1970 ANNUAL REVIEW OF HM ORDERS 1970 CT COLONOGRAPHY 1970 FIT 1970 FLEX SIG 1970 GLUCOSE 1970 LIPID 1970 sDNA (Cologuard) 1970 COLONOSCOPY 1979 COLORECTAL CANCER SCREENING 1979 HIV SCREENING 1984 HEPATITIS C SCREENING 1987 LUNG CANCER SCREENING 2019 YEARLY PREVENTIVE VISIT 04/02/2022 04/02/2021 COVID-19 Vaccine ( season) 2023 03/17/2022, 05/28/2021, 09/27/2020, Additional history exists PHQ-2 (once per calendar year) 2023 INFLUENZA VACCINE (Season Ended) 2024 03/17/2022, 04/02/2021, 03/10/2020, Additional history exists DTAP/TDAP/TD IMMUNIZATION (2 - Td or Tdap) 04/02/2031 04/02/2021 HEPATITIS B IMMUNIZATION Completed 021, 10/26/2016, 10/26/2016, Additional history exists ZOSTER IMMUNIZATION Completed 03/17/2022, Pneumococcal Vaccine: Pediatrics (0 to 5 Years) and At-Risk Patients (6 to 64 Years) Aged Out 07/11/2022, 05/06/2009 No longer eligibl e based on patient's age to complete this topic HPV IMMUNIZATION Aged Out No longer e ligible based on patient's age to complete this topic IPV IMMUNIZATION Aged Out No longer e ligible based on patient's age to complete this topic MENINGITIS IMMUNIZATION Aged Out No l onger eligible based on patient's age to complete this topic RSV MONOCLONAL ANTIBODY Aged Out No l onger eligible based on patient's age to complete this topic Care Teams Instructor Knitting Relationship Specialty Start Date End Date Ayaz Haro [address] [place] [address] PCP - General Family Medicine 08/26/22
[2023-11-01 09:53] LABS: Procalcitonin* 0.05 ng/mL (<0.50)
[2023-11-01 10:03] LABS: C Reactive Protein* < 0.5 mg/dL (0.5-1.0)
--- NOTE | 2023-11-01 10:45 | CT_ITS ---
Patient: STONEY BURNETT Facility:?[facility] Patient ID:?[id number] Site Patient ID:?[id number]. Site :?1970 Study:?CT-Extremity Right foot w/o-11/01/2023 11:32:13 AM Ordering Physician:Valentin Flores Final Report: INDICATION: Midfoot pain. TECHNIQUE: Noncontrast CT of the right foot. COMPARISON: Radiographs from 11/01/2023. FINDINGS: There is a subtle nondisplaced incomplete fracture involving the plantar cortex of the 2nd metatarsal bone at the junction of the metaphysis and shaft. This is noted on coronal image number 34 of series 5. There is some periosteal reaction involving the 2nd metatarsal bone. Remote fracture of the neck of the 3rd metatarsal bone, healed with mild deformity. Prior plate and screw fixation of the proximal 5th metatarsal bone. That placed hardware appears intact and appropriately seated. The 5th metatarsal base fracture demonstrates partial healing. Cuneiform bones, navicular bone and cuboid bone are intact. TMT alignment maintained. An os peroneum is present. Chronic ossicle adjacent to the anterior process of the calcaneus. Chronic ossicle along the medial aspect of the sinus tarsi. Plantar calcaneal spur. Thickening of the proximal plantar fascia. Subcutaneous edema. Mild atrophy of interosseous foot musculature suggesting chronic denervation changes. IMPRESSION: 1. Subtle nondisplaced incomplete fracture involving the plantar cortex of the 2nd metatarsal bone proximally. Associated periosteal reaction involving the 2nd metatarsal shaft. 2. Remote fracture of the 3rd metatarsal bone, healed with mild deformity. 3. Prior plate and screw fixation of the 5th metatarsal bone. Hardware intact and appropriately seated. Fifth metatarsal base fracture demonstrates partial healing. 4. No TMT joint malalignment or significant arthrosis. 5. Mild atrophy of the interosseous foot musculature which may reflect chronic denervation changes. Dictated by Duke Da Silva MD @ 11/01/2023 11:45:27 AM Please note that all CT scans at this facility use dose modulation, iterative reconstruction, and/or weight-based dosing when appropriate to reduce radiation dose to as low as reasonably achievable. Dictated by: Duke Da Silva MD @ 11/01/2023 11:45:37 Signed by:?Duke Da Silva MD @11/01/2023 11:45:37 AM (Electronic Signature)
== END 2023-11-01 12:10 | disposition home or self-care (01) ==
PROVIDERS: Emergency Provider Family Medicine; PCP Family Medicine
DX: S92.324A Nondisplaced fracture of second metatarsal bone, right foot, initial encounter for closed fracture (principal)
CPT/HCPCS: 36415; 73630; 73700; 80048; 84145; 84550; 85025; 86140; 99284